=== PATIENT | female | born 1980 | race Two or more races ===

== ENCOUNTER 2018-03-21 13:04 | Emergency (ER) | payer MEDICAID ==
[~2018-03-21] VITALS: Ht 162.6 cm; Wt 72.6 kg
[2018-03-21 13:13] VITALS: BP 124/68
[2018-03-21] MEDS ORDERED: Ketorolac 60mg Inj IM ONE (13:45)
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
[2018-03-21] MEDS ORDERED: IBUPROFEN800 MG ORAL (15:16)
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
[2018-03-21 15:41] LABS: APPEARANCE,URINE VERY CLOUDY; BILIRUBIN, URINE NEGATIVE (NEGATIVE); GLUCOSE, URINE (UA) NEGATIVE (NEGATIVE); KETONES,URINE 1+ (NEGATIVE); LEUKOCYTE ESTERASE ,URINE 3+ (NEGATIVE); NITRITE,URINE POSITIVE (NEGATIVE); PH,URINE 5 (4.5-8.0); PROTEIN,URINE 2+ (NEGATIVE); UROBILINOGEN,URINE NORMAL MG/DL (0.0-1.0)
[2018-03-21 15:43] LABS: COLOR,URINE YELLOW
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
[2018-03-21 16:30] VITALS: BP 119/67
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
== END 2018-03-21 16:30 | disposition home or self-care (01) ==
LOC: EDBD 13:04 → EMR 13:20
DX: S20.219A Contusion of unspecified front wall of thorax, initial encounter (principal); S00.93XA Contusion of unspecified part of head, initial encounter; Y04.2XXA Assault by strike against or bumped into by another person, initial encounter; Y07.03 Male partner, perpetrator of maltreatment and neglect; Y93.89 Activity, other specified; Y92.89 Other specified places as the place of occurrence of the external cause
CPT/HCPCS: 70450; 76700; 81003; 81025; 87086; 87181; 96372; 99284